=== PATIENT | male | born 1945 | race Caucasian/White ===

== ENCOUNTER 2024-09-30 15:41 | Inpatient (IN) | payer MEDICARE, SELFPAY ==
[2024-09-30] VITALS (23 sets, daily range): BP systolic 91–125; BP diastolic 51–75; PULSE 101–120; TEMP 37.4–37.9; O2SAT 92–97; BMI 32.3; BMI 29.2
--- NOTE | 2024-09-30 15:45 | XR_ITS ---
The [address] [address] Patient Name: CATIE BUTTS MRN: [id number] date: 1945 Sex: M Assigned Patient Location: ER Current Patient Location: ER Accession/Order Number: [id number] Exam Date: 09/30/2024 15:57 Report Date: 09/30/2024 16:53 At the request of: VIRGIL MARK Procedure: XR chest 1V EXAM: XR chest 1V HISTORY: cough COMPARISON: Chest x-ray 03/09/2011. CT including the lung bases 921 and 11. TECHNIQUE: AP upright chest x-ray FINDINGS: Lung markings diffusely prominent increased from previous without focal density, consolidation or edema. Cardiac silhouette is increased accentuated by magnification. No pleural effusion or pneumothorax XR/XR chest 1V IMPRESSION: Increased lung markings without definite focal infiltrate or edema. Electronically authenticated by: JOSE M TIJERINA Date: 09/30/2024 16:53
--- NOTE | 2024-09-30 15:45 | ECG_ITS ---
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
[2024-09-30 16:17] LABS: Bilirubin Urine NEGATIVE (NEGATIVE); Blood Urine LARGE (NEGATIVE); Clarity Urine CLEAR (CLEAR); Color Urine YELLOW (YELLOW); Glucose Urine UA NEGATIVE (NEGATIVE); Ketones Urine TRACE mg/dL (NEGATIVE); Leukocyte Esterase Urine NEGATIVE (NEGATIVE); Nitrite Urine NEGATIVE (NEGATIVE); Protein Urine 100 mg/dL (NEG/TRACE); Urine Microscopic Indicated YES; pH Urine 5.5 (5.0-9.0)
[2024-09-30 16:23] LABS: Bacteria Urine TRACE #/HPF (NONE SEEN); Cast Seen? SEEN #/LPF (NONE SEEN); Crystals Seen? None Seen #/HPF (None Seen); Hyaline Casts Urine RARE; Mucus Urine TRACE (NONE SEEN); RBC Urine 0-2 #/HPF (0-2); Squamous Epithelial Cell Urine FEW #/LPF (NONE/RARE); Urine Culture Indicated NO; WBC Urine 0-2 #/HPF (NONE SEEN)
[2024-09-30 17:03] LABS: Basophils Percent Auto 0.3 % (0.2-2.0); Eosinophils Absolute Auto 0.1 10^3/uL (0.0-0.7); Eosinophils Percent Auto 0.5 % (0.9-7.0); Hematocrit 39.6 % (42.0-54.0); Hemoglobin 12.9 g/dL (14.0-18.0); Immature Granulocytes Abs Auto 0.28 10^3/uL (0.00-0.03); Immature Granulocytes Pct Auto 2.7 % (0.0-0.5); Lymphocytes Absolute Auto 1.2 10^3/uL (1.2-3.8); Lymphocytes Percent Auto 11.1 % (20.5-60.0); Mean Corpuscular HGB Conc 32.6 g/dL (29.9-35.2); Mean Corpuscular Hemoglobin 33.9 pg (25.9-34.0); Mean Corpuscular Volume 103.9 fL (80.0-94.0); Mean Platelet Volume 11.3 fL (9.5-13.5); Monocytes Absolute Auto 0.7 10^3/uL (0.3-0.8); Monocytes Percent Auto 6.7 % (1.7-12.0); Neutrophils Absolute Auto 8.3 10^3/uL (1.4-6.5); Neutrophils Percent Auto 78.7 % (43.0-75.0); Platelet Count 238 10^3/uL (150-450); Red Blood Count 3.81 10^6/uL (4.70-6.10); Red Cell Distribution Width 12.9 % (11.0-15.0); White Blood Count 10.5 10^3/uL (4.0-11.0)
[2024-09-30 17:14] LABS: Influenza Virus A Antigen Negative; Influenza Virus B Antigen Negative; Internal Control Within Normal Limits; SARS-CoV-2 Ag NEGATIVE (NEGATIVE)
[2024-09-30 17:16] LABS: INR 1.03; Prothrombin Time 10.9 sec (9.0-11.6)
[2024-09-30 17:21] LABS: Alanine Aminotransferase 33 U/L (16-63); Albumin Level 3.2 g/dL (3.4-5.0); Alkaline Phosphatase 38 U/L (46-116); Anion Gap 15.8; Aspartate Amino Transferase 38 U/L (15-37); BUN Creatinine Ratio 12.8; Bilirubin Total 0.9 mg/dL (0.2-1.0); Calcium 9.6 mg/dL (8.5-10.1); Carbon Dioxide 26.2 mmol/L (21.0-32.0); Chloride 107 mmol/L (98-107); Estimated GFR (African America 31 (>=60 mL/min/1.73m^2); Estimated GFR (Non-African Ame 26 (>=60 mL/min/1.73m^2); Globulin 3.1 g/dL; Glucose 96 mg/dL (74-106); Sodium 145 mmol/L (136-145); Total Protein 6.3 g/dL (6.4-8.2)
[2024-09-30 17:24] LABS: Troponin I High Sensitivity 705.9 pg/mL (4.0-76.1)
[2024-09-30 18:06] LABS: Lactate/Lactic Acid 1.4 mmol/L (0.4-2.0)
[2024-09-30 18:31] LABS: Troponin I High Sensitivity 745.5 pg/mL (4.0-76.1)
--- NOTE | 2024-09-30 18:48 | ED_ITS ---
HPI HPI - General Adult General Chief complaint: Weakness Stated complaint: Weakness Time Seen by Provider: 09/30/24 15:44 Source: patient Mode of arrival: ambulance History of Present Illness HPI narrative: 79-year-old male coming to the ER with a history of 3 to 4 days history of decreased p.o. intake and cough, no difficulty breathing but the main concern is generalized weakness, the patient have no chest pain no nausea no vomiting He have a history of chronic kidney disease and according to the family at the bedside the workup usually shows a creatinine 1.8 Related Data Home Medications ?Medication ?Instructions ?Recorded ?Confirmed abiraterone 500 mg tablet 500 mg PO DAILY 09/30/24 09/30/24 amlodipine 5 mg-benazepril 20 mg 1 cap PO DAILY 09/30/24 09/30/24 capsule atorvastatin 40 mg tablet 40 mg PO DAILY 09/30/24 09/30/24 fenofibrate 160 mg tablet 160 mg PO DAILY 09/30/24 09/30/24 furosemide 20 mg tablet 20 mg PO DAILY PRN edema 09/30/24 09/30/24 metoprolol tartrate 50 mg tablet 50 mg PO DAILY 09/30/24 09/30/24 prednisone 5 mg tablet 5 mg PO BID 09/30/24 09/30/24 Allergies Allergy/AdvReac Type Severity Reaction Status Date / Time Penicillins Allergy Severe Unknown Verified 09/30/24 15:45 Sulfa (Sulfonamide Allergy Severe Unknown Verified 09/30/24 15:45 Antibiotics) Opioid HPI Opioid Management Most Recent Opioid Data: No Data to Display Review of Systems ROS Status of ROS 10 or more systems reviewed and unremark able except as noted in history and below [facility] Medical History (Updated 09/30/24 @ 18:48 by Mickie Villasenor MD) Hypercholesteremia ?E78.00 - Pure hypercholesterolemia, unspecified (ICD-10) Edema ?R60.9 - Edema, unspecified (ICD-10) Hypertension ?I10 - Essential (primary) hypertension (ICD-10) Adenocarcinoma of prostate, stage 4 ?C61 - Malignant neoplasm of prostate (ICD-10) Social History Little interest or pleasure in doing things: not at all Feeling down, depressed, or hopeless: not at all Exam Narrative Exam Narrative: Nurses notes and vital signs reviewed and patient is not hypoxic. General: Well-appearing and in no apparent distress. Skin: Warm, dry, no pallor noted. No rash. Head: Normocephalic, atraumatic. Neck: Supple, non-tender. Eye: Pupils are equal, round and EOMI. No scleral icterus. Ears, Nose, Mouth, and Throat: TM are clear, no nasal mucosal hypertrophy. Oral mucosa is moist, no posterior oropharynx erythema, uvula is mid-line Cardiovascular: Regular Rate and Rhythm without murmur, gallop or rub. Respiratory: No accessory muscle use or respiratory distress. Lungs are clear to auscultation, no wheezing, rales or rhonchi Chest Wall: no tenderness Back: No midline thoracic or lumbar vertebral tenderness. No CVA tenderness Musculoskeletal: normal ROM, no calf or popliteal tenderness, no lower extremity edema/swelling GI: Abdomen is soft, non-distended. Normal bowel sounds. No masses appreciated. No tenderness to palpation. No rebound, guarding, or rigidity noted. Neurological: A&O x4. No cranial nerve dysfunction observed. Constitutional Vital Signs, click to edit/add: Last Vital Signs Temp 100.2 F 09/30/24 15:42 Pulse 106 H 09/30/24 18:30 Resp 19 09/30/24 18:30 BP 91/56 09/30/24 18:30 Pulse Ox 97 09/30/24 17:00 O2 Del Method Room Air 09/30/24 15:42 Course Vital Signs Vital signs: Vital Signs Temperature 100.2 F 09/30/24 15:42 Pulse Rate 108 H 09/30/24 15:42 Respiratory Rate 16 09/30/24 15:42 Blood Pressure 107/70 09/30/24 15:42 Pulse Oximetry 97 09/30/24 15:42 Oxygen Delivery Method Room Air 09/30/24 15:42 Temperature 100.2 F 09/30/24 15:42 Pulse Rate 106 H 09/30/24 18:30 Respiratory Rate 19 09/30/24 18:30 Blood Pressure 91/56 09/30/24 18:30 Pulse Oximetry 97 09/30/24 17:00 Oxygen Delivery Method Room Air 09/30/24 15:42 Medical Decision Making MDM Narrative Medical decision making narrative: The patient EKG in the ER showing sinus rhythm with a heart rate of [address] elevation or depression some T wave inversion in lead aVL only Chest x-ray shows increasing density but there is no definite infiltrate The patient troponin was 700 and repeated was 745 BNP is 1800 and the patient have some acute symptoms of chronic kidney disease but we will be very cautious with the fluid only 500 cc of fluid will be given right now Spoke with cardiology service and Dr. Willis agreed that the patient presentation mostly secondary to dehydration and acute on top of chronic kidney disease The patient will be admitted for further evaluation including echocardiogram The patient case was discussed with SPECIAL POLICE OFFICER Faye and the patient will be admitted under Lab Data Labs: Lab Results 09/30/24 09/30/24 09/30/24 Range/Units 15:50 15:55 16:10 WBC 10.5 (4.0-11.0) 10^3/uL RBC 3.81 L (4.70-6.10) 10^6/uL Hgb 12.9 L (14.0-18.0) g/dL Hct 39.6 L (42.0-54.0) % MCV 103.9 H (80.0-94.0) fL MCH 33.9 (25.9-34.0) pg MCHC 32.6 (29.9-35.2) g/dL RDW 12.9 (11.0-15.0) % Plt Count 238 (150-450) 10^3/uL MPV 11.3 (9.5-13.5) fL Neut % (Auto) 78.7 H (43.0-75.0) % Lymph % (Auto) 11.1 L (20.5-60.0) % [place] % (Auto) 6.7 (1.7-12.0) % Eos % (Auto) 0.5 L (0.9-7.0) % Baso % (Auto) 0.3 (0.2-2.0) % Neut # (Auto) 8.3 H (1.4-6.5) 10^3/uL Lymph # (Auto) 1.2 (1.2-3.8) 10^3/uL Butler # (Auto) 0.7 (0.3-0.8) 10^3/uL Eos # (Auto) 0.1 (0.0-0.7) 10^3/uL Baso # (Auto) 0.0 (0.0-0.1) 10^3/uL Abs Immat Gran (auto) 0.28 H (0.00-0.03) 10^3/uL Imm/Tot Granulo (auto) 2.7 H (0.0-0.5) % PT 10.9 (9.0-11.6) sec INR 1.03 Sodium 145 (136-145) mmol/L Potassium 4.0 (3.5-5.1) mmol/L Chloride 107 (98-107) mmol/L Carbon Dioxide 26.2 (21.0-32.0) mmol/L Anion Gap 15.8 BUN 31.0 H (7.0-18.0) mg/dL Creatinine 2.43 H (0.70-1.30) mg/dL Est GFR ( Amer) 31 L (>=60 mL/min/1.73m^2) Est GFR (Non-Af Amer) 26 L (>=60 mL/min/1.73m^2) BUN/Creatinine Ratio 12.8 Glucose 96 (74-106) mg/dL Lactate 3.0 H* (0.4-2.0) mmol/L Calcium 9.6 (8.5-10.1) mg/dL Total Bilirubin 0.9 (0.2-1.0) mg/dL AST 38 H (15-37) U/L ALT 33 (16-63) U/L Alkaline Phosphatase 38 L (46-116) U/L Troponin I High Sens 705.9 H* (4.0-76.1) pg/mL NT-Pro-B Natriuret Pep 1304.0 (<=1800.0) pg/mL Total Protein 6.3 L (6.4-8.2) g/dL Albumin 3.2 L (3.4-5.0) g/dL Globulin 3.1 g/dL Albumin/Globulin Ratio 1.0 Urine Color Yellow (YELLOW) Urine Clarity Clear (CLEAR) Urine pH 5.5 (5.0-9.0) Ur Specific [place] 1.020 (1.005-1.025) Urine Protein 100 A (NEG/TRACE) mg/dL Urine Glucose (UA) Negative (NEGATIVE) mg/dL Urine Ketones Trace A (NEGATIVE) mg/dL Urine Occult Blood Large A (NEGATIVE) Urine Nitrite Negative (NEGATIVE) Urine Bilirubin Negative (NEGATIVE) Urine Urobilinogen 1.0 (0.2-1.0) EU/dL Ur Leukocyte Esterase Negative (NEGATIVE) Urine RBC 0-2 (0-2) #/HPF Urine WBC 0-2 A (NONE SEEN) #/HPF Ur Squamous Epith Cells Few A (NONE/RARE) #/LPF Urine Crystals None seen (None Seen) #/HPF Urine Bacteria Trace A (NONE SEEN) #/HPF Urine Casts Seen A (NONE SEEN) #/LPF Hyaline Casts Rare Urine Mucus Trace A (NONE SEEN) Ur Culture Indicated? No Influenza Type A Ag Negative Influenza Type B Ag Negative SARS-CoV-2 Ag (CV2AG) Negative (NEGATIVE) 09/30/24 09/30/24 Range/Units 17:40 18:05 WBC (4.0-11.0) 10^3/uL RBC (4.70-6.10) 10^6/uL Hgb (14.0-18.0) g/dL Hct (42.0-54.0) % MCV (80.0-94.0) fL MCH (25.9-34.0) pg MCHC (29.9-35.2) g/dL RDW (11.0-15.0) % Plt Count (150-450) 10^3/uL MPV (9.5-13.5) fL Neut % (Auto) (43.0-75.0) % Lymph % (Auto) (20.5-60.0) % Butler % (Auto) (1.7-12.0) % Eos % (Auto) (0.9-7.0) % Baso % (Auto) (0.2-2.0) % Neut # (Auto) (1.4-6.5) 10^3/uL Lymph # (Auto) (1.2-3.8) 10^3/uL Butler # (Auto) (0.3-0.8) 10^3/uL Eos # (Auto) (0.0-0.7) 10^3/uL Baso # (Auto) (0.0-0.1) 10^3/uL Abs Immat Gran (auto) (0.00-0.03) 10^3/uL Imm/Tot Granulo (auto) (0.0-0.5) % PT (9.0-11.6) sec INR Sodium (136-145) mmol/L Potassium (3.5-5.1) mmol/L Chloride (98-107) mmol/L Carbon Dioxide (21.0-32.0) mmol/L Anion Gap BUN (7.0-18.0) mg/dL Creatinine (0.70-1.30) mg/dL Est GFR ( Amer) (>=60 mL/min/1.73m^2) Est GFR (Non-Af Amer) (>=60 mL/min/1.73m^2) BUN/Creatinine Ratio Glucose (74-106) mg/dL Lactate 1.4 (0.4-2.0) mmol/L Calcium (8.5-10.1) mg/dL Total Bilirubin (0.2-1.0) mg/dL AST (15-37) U/L ALT (16-63) U/L Alkaline Phosphatase (46-116) U/L Troponin I High Sens 745.5 H* (4.0-76.1) pg/mL NT-Pro-B Natriuret Pep (<=1800.0) pg/mL Total Protein (6.4-8.2) g/dL Albumin (3.4-5.0) g/dL Globulin g/dL Albumin/Globulin Ratio Urine Color (YELLOW) Urine Clarity (CLEAR) Urine pH (5.0-9.0) Ur Specific [place] (1.005-1.025) Urine Protein (NEG/TRACE) mg/dL Urine Glucose (UA) (NEGATIVE) mg/dL Urine Ketones (NEGATIVE) mg/dL Urine Occult Blood (NEGATIVE) Urine Nitrite (NEGATIVE) Urine Bilirubin (NEGATIVE) Urine Urobilinogen (0.2-1.0) EU/dL Ur Leukocyte Esterase (NEGATIVE) Urine RBC (0-2) #/HPF Urine WBC (NONE SEEN) #/HPF Ur Squamous Epith Cells (NONE/RARE) #/LPF Urine Crystals (None Seen) #/HPF Urine Bacteria (NONE SEEN) #/HPF Urine Casts (NONE SEEN) #/LPF Hyaline Casts Urine Mucus (NONE SEEN) Ur Culture Indicated? Influenza Type A Ag Influenza Type B Ag SARS-CoV-2 Ag (CV2AG) (NEGATIVE) Discharge Plan Discharge Chief Complaint: Weakness Clinical Impression: Acute kidney injury superimposed on chronic kidney disease Patient Disposition: Admitted as Observation Time of Disposition Decision: 18:47
[2024-09-30] MEDS: 0.9 % SODIUM CHLORIDE 1,000 ML 500 ML IV (19:46)
[2024-09-30] MEDS: HEPARIN SODIUM (PORCINE) 5,000 UNIT/ML VIAL 5000 UNIT SUBQ (21:34)
[2024-09-30] MEDS: 0.9 % SODIUM CHLORIDE 1,000 ML 100 ML IV (21:52)
[2024-09-30 22:49] LABS: Troponin I High Sensitivity 800.9 pg/mL (4.0-76.1)
[2024-10-01] VITALS (25 sets, daily range): BP systolic 112–156; BP diastolic 50–71; PULSE 77–108; TEMP 36.6–36.9; O2SAT 93–99
--- NOTE | 2024-10-01 05:05 | PC.NURSE ---
Pt's daughter Rosalind called nurse's station. This RN asked pt if information can be given to her over the phone. Pt voiced that it was OK to give his daughter information over the phone. Update provided about the night, explained that echo is ordered but is not scheduled for a specific time at the moment. Rosalind voiced understanding and declined further questions.
--- NOTE | 2024-10-01 06:00 | ECG_ITS ---
The [facility] Test Date: 2024-10-01 Pat Name: CATIE BUTTS Department: Room: 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
[2024-10-01 06:41] LABS: Basophils Percent Auto 0.3 % (0.2-2.0); Eosinophils Percent Auto 0.3 % (0.9-7.0); Hematocrit 39.8 % (42.0-54.0); Hemoglobin 12.5 g/dL (14.0-18.0); Immature Granulocytes Abs Auto 0.28 10^3/uL (0.00-0.03); Immature Granulocytes Pct Auto 2.3 % (0.0-0.5); Lymphocytes Absolute Auto 1.2 10^3/uL (1.2-3.8); Lymphocytes Percent Auto 9.6 % (20.5-60.0); Mean Corpuscular HGB Conc 31.4 g/dL (29.9-35.2); Mean Corpuscular Hemoglobin 32.8 pg (25.9-34.0); Mean Corpuscular Volume 104.5 fL (80.0-94.0); Mean Platelet Volume 11.6 fL (9.5-13.5); Monocytes Absolute Auto 0.6 10^3/uL (0.3-0.8); Monocytes Percent Auto 4.8 % (1.7-12.0); Neutrophils Absolute Auto 10.2 10^3/uL (1.4-6.5); Neutrophils Percent Auto 82.7 % (43.0-75.0); Platelet Count 159 10^3/uL (150-450); Red Blood Count 3.81 10^6/uL (4.70-6.10); Red Cell Distribution Width 13.1 % (11.0-15.0); White Blood Count 12.3 10^3/uL (4.0-11.0)
--- NOTE | 2024-10-01 07:00 | CA_ITS ---
Patient Name: CATIE BUTTS MR#: [id number] : 1945 Exam Date: 10/01/2024 Ordering Doctor: SANJEEV ALLEN ECHOCARDIOGRAM REPORT PROCEDURE: CA ECHO DOPPLER COMPLETE INDICATIONS: Elevated troponin, chronic kidney disease, hypertension COMPARISON: None. DESCRIPTION: COMPLETE ECHOCARDIOGRAM Real-time transthoracic echocardiography with 2D, M-mode, spectral and color flow Doppler performed. QUALITY: Technical quality was good. LEFT VENTRICLE: Normal chamber size. Normal left ventricular wall thickness. Normal systolic function. LV EF: Normal left ventricular ejection fraction, (55%). DIASTOLIC: Normal diastolic function. ATRIAL SEPTUM: LEFT ATRIUM: Normal chamber size. RIGHT ATRIUM: Normal chamber size. RIGHT VENTRICLE: Normal chamber size. TRICUSPID VALVE: Normal mobility and thickness. No stenosis with no regurgitation. Unable to assess right-sided pressures due to lack of measurable tricuspid regurgitation. MITRAL VALVE: Normal mobility and thickness. No evidence of mitral valve stenosis. There is no mitral annular calcification. Trivial mitral regurgitation. AORTIC VALVE: Normal trileaflet appearance. Mildly calcified aortic valve. Normal leaflet mobility. No evidence of aortic valve stenosis. No aortic regurgitation. AORTIC ROOT: Normal diameter and appearance. Ascending aorta is normal in size. PULMONIC VALVE: Normal thickness and mobility. No stenosis. Trivial regurgitation. PERICARDIUM: No evidence of pericardial effusion. IVC: Not well visualized. PLEURA: CONCLUSION: 1. Normal ventricular size and systolic function. LVEF is estimated at 55%. 2. No significant valvular dysfunction. 3. No pericardial effusion. Adult Echocardiography Procedure Report Left Ventricle LVEDD (3.7 - 5.6 cm): 3.74 cm LVESD (2.2 - 4.0 cm): 2.60 cm LVIVS thickness (0.6 - 1.2 cm): 0.93 cm LVPW thickness (0.5 - 1.0 cm): 0.91 cm LVOT Max Gradient: 4.65 mm[Hg] LVOT Area (cm2): 1.08 m/s Peak Velocity (LVOT): 1.08 m/s Mean Velocity (LVOT): 0.72 m/s LVOT Diameter 2.45 cm Left Atrium LA Volume Index (2D A2C): 33.81 ml/m2 Left Atrium Systolic Dimension: 3.44 cm Mitral Valve MV E to A Ratio: 0.78 Mitral Valve A-Wave Peak Velocity: 0.89 m/s Mitral Valve E-Wave Peak Velocity: 0.69 m/s Right Ventricle Aorta AO Root Diam: 2.96 cm Ascending Ao Diam: 2.41 cm Aortic Valve AoV Area (Peak Ar): 3.21 cm2, 3.21 cm2 AoV Area (VTI): 3.57 cm2, 3.57 cm2 Peak Velocity(Antegrade Flow): 1.58 m/s Peak Gradient(Antegrade Flow): 9.96 mm[Hg] Mean Velocity(Antegrade Flow): 1.03 m/s Mean Gradient(Antegrade Flow): 4.91 mm[Hg] Velocity Time Integral: 29.44 cm Tricuspid Valve Pulmonic Valve Peak Velocity: 0.74 m/s Peak Gradient: 2.19 mm[Hg] Right Atrium Right Atrium Systolic Pressure: 40.92 ml, 40.92 ml Dictated by: Prakash Christian M.D. on 10/01/2024 at 18:35 Approved by: Prakash Christian M.D. on 10/01/2024 at 18:37
[2024-10-01 07:03] LABS: Alanine Aminotransferase 43 U/L (16-63); Albumin Level 2.6 g/dL (3.4-5.0); Alkaline Phosphatase 32 U/L (46-116); Anion Gap 20.3; Aspartate Amino Transferase 86 U/L (15-37); BUN Creatinine Ratio 13.8; Bilirubin Total 0.8 mg/dL (0.2-1.0); Calcium 8.7 mg/dL (8.5-10.1); Carbon Dioxide 18.2 mmol/L (21.0-32.0); Chloride 109 mmol/L (98-107); Estimated GFR (African America 36 (>=60 mL/min/1.73m^2); Estimated GFR (Non-African Ame 29 (>=60 mL/min/1.73m^2); Globulin 2.7 g/dL; Glucose 67 mg/dL (74-106); Magnesium 2.1 mg/dL (1.8-2.4); Potassium 3.5 mmol/L (3.5-5.1); Sodium 144 mmol/L (136-145); Total Protein 5.3 g/dL (6.4-8.2)
[2024-10-01 07:22] LABS: Troponin I High Sensitivity 618.6 pg/mL (4.0-76.1)
--- NOTE | 2024-10-01 07:32 | PC.NURSE ---
Pt transferred to room 202 via bed. Telemetry on and working. Bedside report given to Padmaja WATTS. Padmaja WATTS told this RN that she would call and update family about the transfer.
--- NOTE | 2024-10-01 08:59 | US_ITS ---
The [address] [address] Patient Name: CATIE BUTTS MRN: [id number] date: 1945 Sex: M Assigned Patient Location: MS Current Patient Location: MS Accession/Order Number: [id number] Exam Date: 10/01/2024 17:07 Report Date: 10/01/2024 18:04 At the request of: SHAIKH CHRISTOPHER Procedure: US renal BI PROCEDURE: US renal BI, 10/01/2024 5:07 PM EST CLINICAL INDICATIONS: Right renal agenesis, acute kidney injury. Personal history of bladder cancer. COMPARISON: CT abdomen and pelvis 06/27/2011 TECHNIQUE: Renal sonogram, grayscale, color evaluation. FINDINGS: Right kidney: Not identified, reportedly renal agenesis Left kidney: 13.0 x 6.9 x 8.1 cm. Cortex 1.3 cm. Prevoid bladder volume: 320 mL Postvoid urinary bladder volume: Not obtained. There is lobular left renal contour. Coarsened echotexture is noted. Convincing hydronephrosis or nephrolithiasis is not evident. Left renal cortical hypoechoic lesions are seen, borderline enhanced posterior features noted, no internal vascularity. Probably benign renal cysts are favored. These measure up to; 1.8 x 2.1 x 1.8 cm upper pole left 1.5 x 1.0 x 1.7 cm midpole left 0.9 x 0.8 x 0.3 cm lower pole left Urinary bladder abnormality is not seen. US/US renal BI IMPRESSION: 1. Right renal agenesis 2. Left renal cortical thinning, no hydronephrosis or calculus 3. Probably benign left renal cyst 4. Unremarkable urinary bladder Electronically authenticated by: JNAAY MOREAU Date: 10/01/2024 18:04
[2024-10-01] MEDS: ATORVASTATIN CALCIUM 40 MG TABLET PO (09:02)
[2024-10-01] MEDS: FENOFIBRATE 54 MG TABLET 162 MG PO (09:02)
[2024-10-01] MEDS: PREDNISONE 5 MG TABLET PO ×2 (09:02→20:27)
[2024-10-01] MEDS: METOPROLOL TARTRATE 50 MG TABLET PO (09:02)
[2024-10-01] MEDS: 0.9 % SODIUM CHLORIDE 1,000 ML 100 ML IV (09:02)
[2024-10-01] MEDS: 0.9 % SODIUM CHLORIDE 1,000 ML 1000 ML IV (09:04)
[2024-10-01 09:29] LABS: Creatine Kinase 1574 U/L (39-308)
--- NOTE | 2024-10-01 09:50 | CT_ITS ---
[address] [address] Patient Name: CATIE BUTTS MRN: [id number] date: 1945 Sex: M Assigned Patient Location: MS Current Patient Location: MS Accession/Order Number: [id number] Exam Date: 10/01/2024 12:05 Report Date: 10/01/2024 12:44 At the request of: SHAIKH CHRISTOPHER Procedure: CT chest wo con EXAMINATION: CT chest wo con HISTORY: Pneumonia COMPARISON: No relevant comparison available. TECHNIQUE: Axial, Coronal, and Sagittal images were created without the administration of IV contrast material. Dose reduction techniques were achieved by using automated exposure control and/or adjustment of mA and/or kV according to patient size and/or use of iterative reconstruction technique. FINDINGS: LUNGS: A few tiny spiculated opacities scattered within the lungs. Mild bronchiectasis and scattered mild mucous plugging bilaterally. A few tiny 2-3 mm nodular opacities scattered within the lungs. PLEURA: No mass, effusion, or pneumothorax. VASCULATURE: No abnormality. TRINO: No mass or pathologic adenopathy. MEDIASTINUM: No mass or pathologic adenopathy. CARDIAC: No enlargement, pericardial thickening, or pericardial effusion. Coronary Artery calcifications: AORTA: No aneurysm or dissection. CHEST WALL: No mass or axillary adenopathy BONES: No bone lesion or fracture. LIMITED ABDOMEN: No suspicious findings. Limited images of the upper abdomen. OTHER: Negative. CT/CT chest wo con IMPRESSION: 1. . Scattered tiny spiculated opacities; suspect infiltrates versus atelectasis. Consider follow-up CT chest in one-2 months to document clearing. 2. Bilateral mild bronchiectasis and a few scattered areas of mild mucous plugging. Electronically authenticated by: CHANNING QUEZADA Date: 10/01/2024 12:44
--- NOTE | 2024-10-01 10:05 | CM.NOTE ---
Rounds made with Dr. Dalal. Dr Dalal discussed labs, xray and treatment plan. Plan is to get CT chest, Echo, Cardiology consult. Don verbalized understanding. Patient lives alone, does not use cane or walker and still drives. PT/OT to be ordered to determine if any needs. No discharge today.
--- NOTE | 2024-10-01 10:30 | PM.HP ---
HPI H&P: HPI History of Present Illness Chief complaint: Acute chronic kidney disease elevated trop Narrative: 79 y o male with hx of metastatic prostate cancer currently on hormonal therapy, chronic prednisone presented to ED with a few days of generalized weakness, poor PO intake, anorexia. He also reports for past few days, he has persistent cough and mild SOB. Upon arrival, he was borderline hypotensive with SBP as low as 90, and required resuscitation with IVF. He also met SIRS criteria/qSOFA criteria for sepsis. Patient's baseline Cr is 1.5-1.8, his Cr upon admission was 2.4 - c/w GUILLERMO. He reported to me that he has noticed decreased UO for past few days. He also had low grade fever in ED. He tested negative for Influenza and COVID. While his CXR was unremarkable, his exam, symptoms were suggestive of Pneumonia and given his hx of metastatic cancer, we ordered a CT chest that revealed bronchiectasis, mucus plugging and possible infiltrates. Patient admitted to med surg for treatment of Sepsis with GUILLERMO sec to Pneumonia. Opioid HPI Opioid Management Most Recent Pain and Opioid Data: Last Pain Assessment 10/01/24 15:00 Last ORT Total Score 0 09/30/24 20:56 09/30/24 Last ORT Risk Category Low Risk 09/30/24 20:56 09/30/24 Review of Systems ROS Status of ROS 10 or more systems reviewed and unremarkable except as noted in history and below [facility] Medical History (Updated 10/01/24 @ 16:09 by Shaikh Katlin MD) HLD (hyperlipidemia) ?E78.5 - Hyperlipidemia, unspecified (ICD-10) Prostate cancer metastatic to bone ?C61 - Malignant neoplasm of prostate (ICD-10) ?C79.51 - Secondary malignant neoplasm of bone (ICD-10) CKD stage 3a, GFR 45-59 ml/min ?N18.31 - Chronic kidney disease, stage 3a (ICD-10) Hypercholesteremia ?E78.00 - Pure hypercholesterolemia, unspecified (ICD-10) Edema ?R60.9 - Edema, unspecified (ICD-10) Hypertension ?I10 - Essential (primary) hypertension (ICD-10) Adenocarcinoma of prostate, stage 4 ?C61 - Malignant neoplasm of prostate (ICD-10) Social History (Updated 10/01/24 @ 15:55 by Shaikh Katlin MD) Within the past year, how often did you have a drink containing alcohol: never Score interpretation: A score less than 4 is consistent with normal alcohol consumption. Smoking status: Never smoker Non-prescribed substance use: denies use Little interest or pleasure in doing things: not at all Feeling down, depressed, or hopeless: not at all Meds Home Medications and Allergies Home Medications ?Medication ?Instructions ?Recorded ?Confirmed ?Type abiraterone 500 mg tablet 500 mg PO DAILY 09/30/24 09/30/24 History amlodipine 5 mg-benazepril 20 mg 1 cap PO DAILY 09/30/24 09/30/24 History capsule atorvastatin 40 mg tablet 40 mg PO DAILY 09/30/24 09/30/24 History fenofibrate 160 mg tablet 160 mg PO DAILY 09/30/24 09/30/24 History furosemide 20 mg tablet 20 mg PO DAILY PRN edema 09/30/24 09/30/24 History metoprolol tartrate 50 mg tablet 50 mg PO DAILY 09/30/24 09/30/24 History prednisone 5 mg tablet 5 mg PO BID 09/30/24 09/30/24 History Allergies Allergy/AdvReac Type Severity Reaction Status Date / Time Penicillins Allergy Severe Unknown Verified 09/30/24 15:45 Sulfa (Sulfonamide Allergy Severe Unknown Verified 09/30/24 15:45 Antibiotics) Exam Constitutional Vital Signs, click to edit/add: Last Vital Signs Temp 98.2 F 10/01/24 08:07 Pulse 77 10/01/24 09:54 Resp 18 10/01/24 08:07 BP 120/71 10/01/24 08:07 Pulse Ox 94 L 10/01/24 08:07 O2 Del Method Room Air 10/01/24 08:07 Documenting provider has reviewed patient's vital signs: yes Common normals: oriented x3 General appearance: cooperative and ill appearing [facility] Common normals: normocephalic and head/scalp atraumatic Head and scalp: normocephalic and atraumatic Eye Common normals: conjunctivae normal and no scleral icterus Conjunctiva: conjunctiva(e) normal Respiratory Common normals: normal respiratory effort Effort & inspection: able to speak in complete sentences Auscultation: rhonchi lower bilaterally Other: Productive cough noted during exam. Cardio Common normals: regular rate, S1 normal heart sound and S2 normal heart sound Rate: regular rate Heart sounds: S1 normal and S2 normal GI Common normals: Normal to inspection, nondistended, normoactive bowel sounds present, soft to palpation, non-tender and no hepatosplenomegaly Palpation: soft and no hepatosplenomegaly Extremity Common normals: no clubbing, cyanosis or edema Neuro Common normals: oriented x3, moves all extremities and no focal motor deficits Psych Common normals: mental status grossly normal, denies hallucinations, denies homicidal ideation and denies suicidal ideation Results Labs Labs: Short CBC 09/30/24 10/01/24 Range/Units 15:55 06:03 WBC 10.5 12.3 H (4.0-11.0) 10^3/uL Hgb 12.9 L 12.5 L (14.0-18.0) g/dL Hct 39.6 L 39.8 L (42.0-54.0) % Plt Count 238 159 (150-450) 10^3/uL BMP 09/30/24 10/01/24 15:55 06:03 Sodium 145 144 Potassium 4.0 3.5 Chloride 107 109 H Carbon Dioxide 26.2 18.2 L BUN 31.0 H 30.0 H Creatinine 2.43 H 2.18 H Glucose 96 67 L Calcium 9.6 8.7 Cardiac Enzymes 10/01/24 Range/Units 06:03 Total Creatine Kinase 1574 H* (39-308) U/L Liver Function 09/30/24 10/01/24 Range/Units 15:55 06:03 Total Bilirubin 0.9 0.8 (0.2-1.0) mg/dL AST 38 H 86 H (15-37) U/L ALT 33 43 (16-63) U/L Alkaline Phosphatase 38 L 32 L (46-116) U/L Albumin 3.2 L 2.6 L (3.4-5.0) g/dL Urine 09/30/24 Range/Units 16:10 Urine Color Yellow (YELLOW) Urine Clarity Clear (CLEAR) Urine pH 5.5 (5.0-9.0) Ur Specific Porter 1.020 (1.005-1.025) Urine Protein 100 A (NEG/TRACE) mg/dL Urine Glucose (UA) Negative (NEGATIVE) mg/dL Assessment and Plan Assessment and Plan (1) Sepsis: Assessment and Plan: SIRS (HR> 120, RR>20) and qSOFA (SBP>100, RR> 20) --> source of infection - Pneumonia Ordered one L IVF Bolus. F/u blood cx and sputum cx. C/w IV abx Qualifiers: Acute renal failure type: unspecified Sepsis acute organ dysfunction status: with acute organ dysfunction Sepsis type: sepsis due to unspecified organism Severe sepsis acute organ dysfunction type: acute renal failure Severe sepsis shock status: without septic shock Qualified Code(s): A41.9 - Sepsis, unspecified organism; R65.20 - Severe sepsis without septic shock; N17.9 - Acute kidney failure, unspecified (2) Bilateral pneumonia: Assessment and Plan: b/l PNA, with sepsis. At high risk of resistant organism due to current cancer diagnosis, prednisone use. Pneumonia severity index risk class - V. Started on IV ceftazidime and Azithromycin. Qualifiers: Lung location: lower lobe of lung Pneumonia type: due to unspecified organism Qualified Code(s): J18.9 - Pneumonia, unspecified organism (3) Hypotension due to hypovolemia: Assessment and Plan: Ordered one L Bolus. C/w aggressive IV hydration. Monitor BP closely. (4) GUILLERMO (acute kidney injury): Assessment and Plan: Due to sepsis, dehydration resulting in pre renal GUILLERMO Renal function slowly improving but still no where close to baseline. C/w IVF. Monitor UO, serum cr. (5) Elevated troponin level not due to acute coronary syndrome: Assessment and Plan: No CP, palpitations. No symptoms suggestive of active cardiac ischemia. likely Type 2 demand ischemia Trop 705 --> 809 --> 618. No previous hx of CAD. ECHO ordered to assess cardiac structure. Cardiology consult pending. (6) Rhabdomyolysis: Assessment and Plan: CK > 1500., With GUILLERMO. Trend CK. Monitor UO, serum cr. Qualifiers: Rhabdomyolysis type: non-traumatic Qualified Code(s): M62.82 - Rhabdomyolysis (7) Generalized weakness: Assessment and Plan: likely due to dehydration, sepsis. PT/OT eval. (8) Lactic acid acidosis: Assessment and Plan: Lactate 3 --> now normal. Due to sepsis. C/w IVF. (9) CKD stage 3a, GFR 45-59 ml/min: Assessment and Plan: Presented with GUILLERMO. Monitor UO, serum cr, closely monitor. (10) Prostate cancer metastatic to bone: Assessment and Plan: On abiraterone. Hold for now due to GUILLERMO and elevated CK. D/w patient's outpatient Oncologist. (11) Hypertension: Assessment and Plan: Hold anti hypertensives as patient is currently with sepsis. Resume once BP is stable. Qualifiers: Hypertension type: primary hypertension Qualified Code(s): I10 - Essential (primary) hypertension (12) HLD (hyperlipidemia): Assessment and Plan: C/w lipitor. Qualifiers: Hyperlipidemia type: unspecified Qualified Code(s): E78.5 - Hyperlipidemia, unspecified
[2024-10-01] MEDS: IPRATROPIUM/ALBUTEROL SULFATE 3 ML AMPUL.NEB IH ×3 (10:34→22:54)
[2024-10-01] MEDS: CEFTAZIDIME 2,000 MG in 0.9 % SODIUM CHLORIDE 100 ML 200 MG IV (11:10)
[2024-10-01] MEDS: HEPARIN SODIUM (PORCINE) 5,000 UNIT/ML VIAL 5000 UNIT SUBQ ×2 (11:10→21:51)
[2024-10-01] MEDS: GUAIFENESIN 200 MG/DEXTROMETHORPHAN 20 MG 10 ML UNIT DOSE CUP PO ×3 (11:12→23:54)
--- NOTE | 2024-10-01 11:28 | SWNOTE1 ---
SW met with pt to discuss dc needs. Pt's son in room as well. Pt lives at home by himself. Pt's son is close by if anything is needed. Pt is independent and does not use any DME. Pt has a stair lift to go up and down the steps. Pt does still drive, has a Leti, so said it drives for him. Pt does not have any discharge needs at this time. SW to review therapy notes and follow as needed.
--- NOTE | 2024-10-01 11:29 | SWNOTE1 ---
Important Message from [employer] reviewed and discussed with patient. Pt. verbalized understanding and signed the form. Original given to patient and copy placed in patient?s chart.
--- NOTE | 2024-10-01 11:31 | SWNOTE1 ---
Therapy did recommend HH, but pt and son both denied need for these services. SW to continue to follow and check on patient tomorrow in regards to HH services.
[2024-10-01] MEDS: AZITHROMYCIN 500 MG in 0.9 % SODIUM CHLORIDE 250 ML 250 MG IV (12:18)
[2024-10-01 15:13] LABS: Anion Gap 15.4; BUN Creatinine Ratio 13.5; Carbon Dioxide 20.4 mmol/L (21.0-32.0); Chloride 112 mmol/L (98-107); Estimated GFR (African America 38 (>=60 mL/min/1.73m^2); Estimated GFR (Non-African Ame 31 (>=60 mL/min/1.73m^2); Glucose 107 mg/dL (74-106); Potassium 3.8 mmol/L (3.5-5.1); Sodium 144 mmol/L (136-145)
[2024-10-01] MEDS: 0.9 % SODIUM CHLORIDE 1,000 ML 150 ML IV (18:56)
[2024-10-01] MEDS: ACETAMINOPHEN 325 MG TABLET 650 MG PO (20:26)
[2024-10-02] VITALS (11 sets, daily range): BP systolic 124–158; BP diastolic 69–77; PULSE 79–110; TEMP 36.4–36.7; O2SAT 92–95
[2024-10-02] MEDS: 0.9 % SODIUM CHLORIDE 1,000 ML 150 ML IV ×2 (01:39→08:42)
[2024-10-02] MEDS: IPRATROPIUM/ALBUTEROL SULFATE 3 ML AMPUL.NEB IH ×2 (05:13→10:23)
[2024-10-02] MEDS: GUAIFENESIN 200 MG/DEXTROMETHORPHAN 20 MG 10 ML UNIT DOSE CUP PO (05:56)
[2024-10-02 06:13] LABS: Basophils Percent Auto 0.1 % (0.2-2.0); Hematocrit 33.5 % (42.0-54.0); Immature Granulocytes Abs Auto 0.13 10^3/uL (0.00-0.03); Immature Granulocytes Pct Auto 1.8 % (0.0-0.5); Lymphocytes Absolute Auto 0.9 10^3/uL (1.2-3.8); Lymphocytes Percent Auto 11.7 % (20.5-60.0); Mean Corpuscular HGB Conc 32.8 g/dL (29.9-35.2); Mean Corpuscular Hemoglobin 33.6 pg (25.9-34.0); Mean Corpuscular Volume 102.4 fL (80.0-94.0); Mean Platelet Volume 10.4 fL (9.5-13.5); Monocytes Absolute Auto 0.4 10^3/uL (0.3-0.8); Monocytes Percent Auto 5.1 % (1.7-12.0); Neutrophils Percent Auto 81.3 % (43.0-75.0); Platelet Count 211 10^3/uL (150-450); Red Blood Count 3.27 10^6/uL (4.70-6.10); Red Cell Distribution Width 13.2 % (11.0-15.0); White Blood Count 7.4 10^3/uL (4.0-11.0)
[2024-10-02 06:37] LABS: Alanine Aminotransferase 55 U/L (16-63); Albumin Globulin Ratio 0.8; Albumin Level 2.3 g/dL (3.4-5.0); Alkaline Phosphatase 31 U/L (46-116); Anion Gap 14.9; Aspartate Amino Transferase 96 U/L (15-37); BUN Creatinine Ratio 13.5; Bilirubin Total 0.5 mg/dL (0.2-1.0); Calcium 7.7 mg/dL (8.5-10.1); Carbon Dioxide 21.5 mmol/L (21.0-32.0); Chloride 112 mmol/L (98-107); Estimated GFR (African America 50 (>=60 mL/min/1.73m^2); Estimated GFR (Non-African Ame 41 (>=60 mL/min/1.73m^2); Globulin 2.9 g/dL; Glucose 117 mg/dL (74-106); Potassium 3.4 mmol/L (3.5-5.1); Sodium 145 mmol/L (136-145); Total Protein 5.2 g/dL (6.4-8.2)
[2024-10-02 06:54] LABS: Creatine Kinase 1471 U/L (39-308)
[2024-10-02] MEDS: FENOFIBRATE 54 MG TABLET 162 MG PO (08:43)
[2024-10-02] MEDS: PREDNISONE 5 MG TABLET PO (08:43)
[2024-10-02] MEDS: ACETAMINOPHEN 325 MG TABLET 650 MG PO (08:43)
[2024-10-02] MEDS: ATORVASTATIN CALCIUM 40 MG TABLET PO (08:43)
[2024-10-02] MEDS: METOPROLOL TARTRATE 50 MG TABLET PO (08:43)
--- NOTE | 2024-10-02 10:06 | CM.NOTE ---
Rounds made with Dr. Dalal, pt will discharge to home today on P.O antibiotics. Pt denies any discharge needs. Pt will need to f/u with PCP and cardiology next week. Pt does not have a shirt trimmer, he will be set up with [facility] cardiology. Renate,city secretary [place] is setting up appt.
--- NOTE | 2024-10-02 10:23 | REH.PTDLY ---
Physical Therapy Daily Note PT Daily Note/Assess Start: 10/02/24 10:14 Freq: Status: Active Protocol: Document 10/02/24 10:15 JAMAAL (Rec: 10/02/24 10:22 JAMAAL [id number]) Physical Therapy Daily Note/Assessment Time In 09:20 Time Out 09:40 Subjective Pt agreeable to therapy. Reports his L LE has not been working as well since last night, hard to lift it up and out of bed. Pain in thigh when trying to move that leg. Therapeutic Exercise 6 Minutes (minutes) Therapeutic Exercise 0 Units Therapeutic Exercise Instructed in seated B LE exs, no issues moving R LE. Treatment Difficulty moving L LE with limited ROM and assistance needed for greater ROM due to L thigh discomfort when muscle is activated. Pt denies feeling as though he pulled a muscle, also denies any LB pain. This is a new onset and pt does bring this up to Dr. Dalal when he is in the room. Therapeutic Activity 10 Minutes (minutes) Therapeutic Activity 1 Units Therapeutic Activity Pt requires assistance moving L LE out of bed with Min Comments A. Sit to stand transfers SBA. Gait training with no AD 180 feet with cues for pt to take his time with ambulation. Pt does become off balance as he is turning , however pt is looking out the window while he is turning opposed to paying attention to where he is going. Pt steady on feet otherwise. Sits up in chair with legs elevated post rx with daughters in the room. Total Therapy 16 Minutes Total Physical 1 Therapy Units Daily Note Summary Pt does well with gait training, going further distance today. Pt does become off balanced with turning, but able to recover with pt reaching to steady himself on therapists arm. Pt does become fatigued with longer distance gait training. Daughter reports someone will be staying with pt upon DC at home, chair lift inside to get upstairs. Probable DC to home today per Dr. Dalal during rounds.
--- NOTE | 2024-10-02 10:31 | P.DS_ITS ---
DS: Providers Provider Date of admission: 09/30/24 20:33 Primary care physician: CHAYO DE OLIVEIRA Admitting clinician: Shaikh Katlin Attending physician on admission: Shaikh Katlin Consults: 10/01/24 07:00 Consult to Cardiology Routine Reason for consultation: Elevated troponin Has provider been notified: No 10/01/24 09:58 Occupational Therapy Eval and Treat Routine Reason for consultation: weakness Physical Therapy Eval and Treat Routine Reason for consultation: weakness Attending physician on discharge: Shaikh Katlin Discharging clinician: Shaikh Katlin Anticipated date of discharge: 10/02/24 DS: Diagnosis Discharge Diagnosis (1) Sepsis: Qualifiers: Sepsis type: sepsis due to unspecified organism Sepsis acute organ dysfunction status: with acute organ dysfunction Severe sepsis acute organ dysfunction type: acute renal failure Acute renal failure type: unspecified Severe sepsis shock status: without septic shock Qualified Code(s): A41.9 - Sepsis, unspecified organism; R65.20 - Severe sepsis without septic shock; N17.9 - Acute kidney failure, unspecified (2) Bilateral pneumonia: Qualifiers: Pneumonia type: due to unspecified organism Lung location: lower lobe of lung Qualified Code(s): J18.9 - Pneumonia, unspecified organism (3) Hypotension due to hypovolemia: (4) GUILLERMO (acute kidney injury): (5) Elevated troponin level not due to acute coronary syndrome: (6) Rhabdomyolysis: Qualifiers: Rhabdomyolysis type: non-traumatic Qualified Code(s): M62.82 - Rhabdomyolysis (7) Generalized weakness: (8) Lactic acid acidosis: (9) CKD stage 3a, GFR 45-59 ml/min: (10) Prostate cancer metastatic to bone: (11) Hypertension: Qualifiers: Hypertension type: primary hypertension Qualified Code(s): I10 - Essential (primary) hypertension (12) HLD (hyperlipidemia): Qualifiers: Hyperlipidemia type: unspecified Qualified Code(s): E78.5 - Hyperlipidemia, unspecified DS: Summary Hospital Course Hospital Course: 79 y o male with hx of metastatic prostate cancer currently on hormonal therapy, chronic prednisone presented to ED with a few days of generalized weakness, poor PO intake, anorexia. He also reported productive cough and mild shortness of breath for past couple of days. Workup in ER was indicated of sepsis secondary to bilateral pneumonia along with acute kidney injury for which she was started on IV fluids, IV antibiotics. His chest x-ray initially did not reveal any consolidation but there was evidence of infiltrate on CT chest. Patient was also initially hypotensive with blood pressure as low as 90 upon arrival. He tested negative for influenza and COVID. Upon admission, he also was found to have elevated troponin as high as 800 that trended down with no signs or symptoms of active cardiac ischemia. He had an echocardiogram to assess cardiac structure that did not reveal any significant cardiac structural abnormality. He also had mildly elevated CK consistent with rhabdomyolysis which trended down with IV hydration. Patient's abiraterone was withheld after consultation with his outpatient oncologist for acute kidney injury and elevated CK. He can resume his medication from Saturday upon discharge. He is feeling much better today with improvement in his renal function and overall feels well with improvement in his energy and breathing. He was also evaluated by physical therapy during admission and is stable for discharge to home. He was instructed to hold his antihypertensives, cholesterol medication on account of recent GUILLERMO and elevated CK levels. He was educated on worrisome signs and symptoms that should prompt him to seek emergent care in ER. He is medically stable for dis charge and will need follow-up with PCP in 1 to 2 weeks. He will also benefit from outpatient workup for coronary artery disease and will be referred to [facility] cardiology. Status at Discharge Functional status at discharge: independent ambulation Overall status at discharge: patient is back to baseline Time Spent with Patient Time attestation: Total time spent providing and/or coordinating discharge services: Time spent: greater than 30 minutes Exam Constitutional Vital Signs, click to edit/add: Last Vital Signs Temp 97.5 F L 10/02/24 08:24 Pulse 85 10/02/24 09:51 Resp 18 10/02/24 08:24 BP 158/73 H 10/02/24 08:24 Pulse Ox 95 10/02/24 08:24 O2 Del Method Room Air 10/02/24 08:24 Documenting provider has reviewed patient's vital signs: yes Common normals: oriented x3 General appearance: cooperative and ill appearing Respiratory Common normals: normal respiratory effort and clear to auscultation bilaterally Effort & inspection: able to speak in complete sentences Other: Productive cough noted during exam. Cardio Common normals: regular rate, S1 normal heart sound and S2 normal heart sound Rate: regular rate Heart sounds: S1 normal and S2 normal GI Common normals: Normal to inspection, nondistended, normoactive bowel sounds present, soft to palpation, non-tender and no hepatosplenomegaly Palpation: soft and no hepatosplenomegaly Extremity Common normals: no clubbing, cyanosis or edema Neuro Common normals: oriented x3, moves all extremities and no focal motor deficits Psych Common normals: mental status grossly normal, denies hallucinations, denies homicidal ideation and denies suicidal ideation DS: Data Data Completed and Pending Labs on day of discharge: Labs from last 24 hours 10/02/24 10/01/24 05:47 14:57 WBC 7.4 RBC 3.27 L Hgb 11.0 L Hct 33.5 L MCV 102.4 H MCH 33.6 MCHC 32.8 RDW 13.2 Plt Count 211 MPV 10.4 Neut % (Auto) 81.3 H Lymph % (Auto) 11.7 L Morrow % (Auto) 5.1 Eos % (Auto) 0.0 L Baso % (Auto) 0.1 L Neut # (Auto) 6.0 Lymph # (Auto) 0.9 L Morrow # (Auto) 0.4 Eos # (Auto) 0.0 Baso # (Auto) 0.0 Abs Immat Gran (auto) 0.13 H Imm/Tot Granulo (auto) 1.8 H Sodium 145 144 Potassium 3.4 L 3.8 Chloride 112 H 112 H Carbon Dioxide 21.5 20.4 L Anion Gap 14.9 15.4 BUN 22.0 H 28.0 H Creatinine 1.63 H 2.07 H Est GFR ( Amer) 50 L 38 L Est GFR (Non-Af Amer) 41 L 31 L BUN/Creatinine Ratio 13.5 13.5 Glucose 117 H 107 H Calcium 7.7 L 8.0 L Total Bilirubin 0.5 AST 96 H ALT 55 Alkaline Phosphatase 31 L Total Creatine Kinase 1471 H* Total Protein 5.2 L Albumin 2.3 L Globulin 2.9 Albumin/Globulin Ratio 0.8 Discharge Plan Discharge Disposition: Home, Self-Care Discharge Medications: New levofloxacin 500 mg tablet 500 mg PO Q48H Qty: 5 0RF benzonatate 100 mg capsule 100 mg PO BID PRN (Reason: cough) Qty: 20 0RF Continued furosemide 20 mg tablet 20 mg PO DAILY PRN (Reason: edema) metoprolol tartrate 50 mg tablet 50 mg PO DAILY prednisone 5 mg tablet 5 mg PO BID Held abiraterone 500 mg tablet 500 mg PO DAILY Hold Instructions: Resume on 10/05/24. amlodipine-benazepril 5-20 mg capsule 1 cap PO DAILY Hold Instructions: Resume on 10/05/24. atorvastatin 40 mg tablet 40 mg PO DAILY Hold Instructions: Resume on 10/05/24. fenofibrate 160 mg tablet 160 mg PO DAILY Hold Instructions: Resume on 10/05/24. Activity: increase activity as tolerated Diet: advance to your usual diet Print Language: Italian Forms: Portal Instructions Follow Up Appointments: F/u with PCP in one week F/u with [facility] Cardiology in 2-3 weeks
[2024-10-02] MEDS: HEPARIN SODIUM (PORCINE) 5,000 UNIT/ML VIAL 5000 UNIT SUBQ (10:47)
[2024-10-02] MEDS: POTASSIUM CHLORIDE 10 MEQ ER TABLET 40 MEQ PO (10:51)
[2024-10-02] MEDS: CEFTAZIDIME 2,000 MG in 0.9 % SODIUM CHLORIDE 100 ML 200 MG IV (10:52)
[2024-10-02] MEDS: AZITHROMYCIN 500 MG in 0.9 % SODIUM CHLORIDE 250 ML 250 MG IV (11:42)
--- NOTE | 2024-10-06 14:11 | CM.DCFOLLOWU ---
Person spoke with: Don How are you feeling? Much natalie How is your pain? No pain Did you understand your discharge instructions? Yes Do you have any questions about your discharge instructions? No Were you given any prescriptions at discharge? Yes Were you able to get your prescriptions filled? Yes Do you understand how to take your medications as ordered? Yes Do you have any questions about your follow up appointment and do you plan to keep your follow up appointment? I just scheduled both appointments Is there anything else that you would like to discuss? No Questions/Comments/Concerns/Other:
== END 2024-10-02 13:00 | disposition home or self-care (01) | DRG 871 ==
LOC: ER 19:37 → ICU 20:36 → MS 10-01 07:18
PROVIDERS: Registered Nurse; Admitting Provider Internal Medicine; Emergency Provider Emergency Medicine; PCP Family Medicine; Visit Provider Internal Medicine
DX: A41.9 Sepsis, unspecified organism (principal); I21.A1 Myocardial infarction type 2; J18.9 Pneumonia, unspecified organism; N17.9 Acute kidney failure, unspecified; M62.82 Rhabdomyolysis; E87.20 Acidosis, unspecified; J47.0 Bronchiectasis with acute lower respiratory infection; R65.20 Severe sepsis without septic shock; E78.00 Pure hypercholesterolemia, unspecified; E78.5 Hyperlipidemia, unspecified; E86.0 Dehydration; E86.1 Hypovolemia; I12.9 Hypertensive chronic kidney disease with stage 1 through stage 4 chronic kidney disease, or unspecified chronic kidney disease; I95.89 Other hypotension; N18.31 Chronic kidney disease, stage 3a; Z79.52 Long term (current) use of systemic steroids; Z79.899 Other long term (current) drug therapy; Z88.0 Allergy status to penicillin; Z88.2 Allergy status to sulfonamides; Z85.46 Personal history of malignant neoplasm of prostate; Z20.822 Contact with and (suspected) exposure to COVID-19
CPT/HCPCS: 36415; 71045; 71250; 76775; 80048; 80053; 81001; 82550; 83605; 83735; 83880; 84484; 85025; 85378; 85610; 87804; 87811; 93005; 93306; 94640; 97161; 97165; 97530; 97535; 99285; J0456; J0713; J1644; J7512